=== PATIENT | male | born 1970 | race Caucasian/White ===

== ENCOUNTER 2023-04-24 22:31 | Emergency (ER) | payer SELFPAY ==
[~2023-04-24] VITALS: Ht 175.3 cm; Wt 90.3 kg
[2023-04-25] MEDS ORDERED: KETOROLAC TROMETHAMINE INJ 60 MG/2 ML VIAL IM ONE ×2 (00:30→00:38)
[2023-04-25] MEDS ORDERED: KETOROLAC TROMETHAMINE INJ 30 MG/ML VIAL ONE (00:32)
[2023-04-25] MEDS ORDERED: KETO10TA2 PO (02:01)
[2023-04-25 02:24] VITALS: BP 162/91; TEMP 99.2; O2SAT 96
== END 2023-04-25 02:24 | disposition home or self-care (01) ==
LOC: ER 22:37
DX: B34.9 Viral infection, unspecified (principal); R51.9 Headache, unspecified; Z20.822 Contact with and (suspected) exposure to COVID-19
CPT/HCPCS: 99283; 87426; 96372; 87804 ×2; J1885; C9803